=== PATIENT | female | born 1970 | race African-American/Black ===

== ENCOUNTER 2016-07-25 09:04 | Emergency (ER) | payer BC, OTHER ==
[2016-07-25 09:18] VITALS: TEMP 98; BMI 29.3
[2016-07-25 09:26] VITALS: BP 149/99; PULSE 116
[2016-07-25] MEDS ORDERED: ACETAMINOPHEN 500 MG TABLET (FP) PO ONE (10:43)
--- NOTE | 2016-07-25 10:45 | PDOC ---
History of Present Illness - General Chief Complaint: Injury Stated Complaint: FALL, RT HAND INJURY Time Seen by Provider: 07/25/16 09:44 History Source: Patient Exam Limitations: No Limitations - History of Present Illness Initial Comments: 07/25/16 17:27 Chief complaint: Fell onto her right hand pain right pinky History of present illness: Patient is a 46-year-old female with H/O anemia and asthma here today complaining of right pinky pain after falling and hitting her right hand prior to arrival here today. Patient denies hitting her head. Patient reports that she can move her finger well with slight pain to proximal aspect. Patient initially did not have any swelling of her finger or hand however as time went on swelling was noted over her fifth metacarpal area. Patient denies any numbness of hand. Patient denies any other injuries. 07/25/16 17:29 07/25/16 17:33 Occurred: reports: just prior to arrival Severity: reports: mild Pain Location: reports: upper extremity (RT. HAND 5TH PROXIMAL FINGER, DISTAL 5TH MCP JT ) Method of Injury: Yes: fall Modifying Factors: improves with: None Loss of Consciousness: no loss of consciousness Associated Symptoms (Fall): denies symptoms Past History - Past Medical History Allergies/Adverse Reactions: Allergies Allergy/AdvReac Type Severity Reaction Status Date / Time shellfish derived Allergy Severe SEVERE Verified 07/25/16 09:14 NAUSEA latex Allergy Intermediate RASH,WELTS Verified 07/25/16 09:14 Home Medications: Ambulatory Orders Amphet Asp/Amphet/D-Amphet [Adderall 10 mg Tablet] 10 mg PO DAILY 03/14/13 Anemia: Yes Asthma: Yes (SEASONAL) Cancer: No Cardiac Disorders: No CVA: No COPD: No CHF: No Dementia: No Diabetes: No GI Disorders: No Disorders: No HTN: No Hypercholesterolemia: No Liver Disease: No Seizures: No Thyroid Disease: No - Surgical History Abdominal Surgery: Yes (TISHA LEDEZMA 2010,UMBILICAL HERNIA AN ) Appendectomy: No Cardiac Surgery: No Cholecystectomy: Yes (2008) Lung Surgery: No Neurologic Surgery: No Orthopedic Surgery: No - Psycho/Social/Smoking Cessation Hx Anxiety: No Suicidal Ideation: No Smoking History: Never smoked Have you smoked in the past 12 months: No Information on smoking cessation initiated: No Hx Alcohol Use: No Drug/Substance Use Hx: No Substance Use Type: Alcohol Hx Substance Use Treatment: No Review of Systems - Review of Systems Able to Perform ROS?: Yes Constitutional: No: Symptoms Reported HEENTM: No: Symptoms Reported Respiratory: No: Symptoms reported Cardiac (ROS): No: Symptoms Reported ABD/GI: No: Symptoms Reported : No: Symptoms Reported Musculoskeletal: Yes: Joint Pain (rt. proximal 5th finger/distal 5th mcp jt), Joint Swelling (rt. distal mcp jt ) Integumentary: No: Symptoms Reported Neurological: No: Symptoms reported *Physical Exam - Vital Signs Last Vital Signs Temp Pulse Resp BP Pulse Ox 98.0 F 116 H 18 149/99 98 07/25/16 09:14 07/25/16 09:25 07/25/16 09:25 07/25/16 09:25 07/25/16 09:25 - Physical Exam General Appearance: Yes: Appropriately Dressed Neck: negative: Tender, Rigidity, Tender lateral, Tender midline Comments:: 07/25/16 17:30 radial pule 4 + right Extremity: positive: Normal Capillary Refill, Normal Range of Motion, Tender ( rt. 5th distal mcp jt), Swelling (rt. 5th mcp jt ). negative: Normal Inspection Integumentary: positive: Swelling (rt. 5th distal mcp jt ) Neurologic: positive: Alert, Normal Response, Respond to painful stimul (right hand all digits, rt. 5th finger at pip, dip and mcp jt full range of motion ), Responsive. negative: Numbness, Sensory Deficit Procedures - Consent Consent obtained: From Patient - Splinting Splint Location: Right: Hand Pre-Proc Neuro Vasc Exam: normal Hand-Made Type: orthoglass Splint Type: Yes: Short Arm (right hand boxer splint appied to rt. ) Post-Proc Neuro Vasc Exam: normal Rafael Bandage: 3" Sling: No Complications: No ED Treatment Course - RADIOLOGY Radiology Studies Ordered: Category Date Time Status FINGER(S) RIGHT [RAD] Stat Radiology 07/25/16 09:58 Completed Medical Decision Making - Medical Decision Making 07/25/16 17:33 07/25/16 17:33 Patient is a 46-year-old female with H/O anemia and asthma here today complaining of right pinky pain after falling and hitting her right hand prior to arrival here today. Patient denies hitting her head. Patient reports that she can move her finger well with slight pain to proximal aspect. Patient initially did not have any swelling of her finger or hand however as time went on swelling was noted over her fifth metacarpal area. Patient denies any numbness of hand. Patient denies any other injuries. Rule out fracture of right fifth finger and metacarpal Plan: X-ray right hand fracture of distal fifth metacarpal joint slightly displaced Ortho-Glass splint applied to right hand boxer fracture Referral to ortho immunization 1000 mg by mouth now 07/25/16 17:34 *DC/Admit/Observation/Transfer Diagnosis at time of Disposition: Fx metacarpal shaft-closed Qualifiers: Encounter type: initial encounter Metacarpal bone: fifth Fracture alignment: displaced Laterality: right Qualified Code(s): S62.326A - Displaced fracture of shaft of fifth metacarpal bone, right hand, initial encounter for closed fracture - Discharge Dispostion Disposition: HOME Condition at time of disposition: Stable - Referrals Referrals: George Salamanca MD [Staff Physician] - Magdy Leslie MD [Staff Physician] - - Patient Instructions Additional Instructions: Apply ice to right hand over fifth metacarpal joint as I show to every hour or 2 for 15 minutes each time and keep Orthoglass splint on until seen by orthopedist Take acetaminophen as needed as directed by dietetics teacher for pain Follow-up with orthopedist within the next 2 days for further evaluation Return to emergency room if any numbness of your right hand or fingers or forearm Patient voiced understanding of discharge instructions and all questions were answered - Post Discharge Activity Work/School Note: Back to Work
[2016-07-25] MEDS ORDERED: ACETAMINOPHEN 500 MG TABLET (FP) ONE (10:53)
== END 2016-07-25 11:11 | disposition home or self-care (01) ==
LOC: JERFT 09:04
DX: S62.326A Displaced fracture of shaft of fifth metacarpal bone, right hand, initial encounter for closed fracture (principal); W01.0XXA Fall on same level from slipping, tripping and stumbling without subsequent striking against object, initial encounter; Y93.89 Activity, other specified; Y92.89 Other specified places as the place of occurrence of the external cause
CPT/HCPCS: 73140-TC-RT; 99281-25

== ENCOUNTER 2018-01-10 08:36 | Emergency (ER) | payer BC ==
[2018-01-10 08:52] VITALS: BP 137/79; PULSE 96; TEMP 98.1; BMI 28.8
--- NOTE | 2018-01-10 09:28 | PDOC ---
History of Present Illness - General Chief Complaint: Pain Stated Complaint: ABSCESS BOIL Time Seen by Provider: 01/10/18 08:59 History Source: Patient Exam Limitations: No Limitations - History of Present Illness Initial Comments: 01/10/18 09:20 left elbow swelling for 3 days no fever, warm, and red. Pt had small area of cut to the elbow prior. no fever no chills, no PMHX. Pt currently taking Flagyl for BV. 01/10/18 11:52 01/10/18 11:54 Severity: reports: mild Pain Location: reports: upper extremity (left elbow) Past History - Past Medical History Allergies/Adverse Reactions: Allergies Allergy/AdvReac Type Severity Reaction Status Date / Time shellfish derived Allergy Severe SEVERE Verified 01/10/18 08:47 NAUSEA latex Allergy Intermediate RASH,WELTS Verified 01/10/18 08:47 Home Medications: Ambulatory Orders Sulfamethoxazole/Trimethoprim [Bactrim Ds -] 1 tab PO BID #14 tablet 01/10/18 metroNIDAZOLE [Flagyl -] 500 mg PO BID 01/10/18 Anemia: Yes Asthma: Yes (SEASONAL) Cancer: No Cardiac Disorders: No CVA: No COPD: No CHF: No Dementia: No Diabetes: No GI Disorders: No Disorders: No HTN: No Hypercholesterolemia: No Liver Disease: No Seizures: No Thyroid Disease: No - Surgical History Abdominal Surgery: Yes (TISHA 2010,UMBILICAL HERNIA AN ) Appendectomy: No Cardiac Surgery: No Cholecystectomy: Yes (2008) Lung Surgery: No Neurologic Surgery: No Orthopedic Surgery: No - Suicide/Smoking/Psychosocial Hx Smoking History: Never smoked Have you smoked in the past 12 months: No Information on smoking cessation initiated: No Hx Alcohol Use: No Drug/Substance Use Hx: No Substance Use Type: None Hx Substance Use Treatment: No *Physical Exam - Vital Signs Last Vital Signs Temp Pulse Resp BP Pulse Ox 98.1 F 96 H 18 137/79 99 01/10/18 08:47 01/10/18 08:47 01/10/18 08:47 01/10/18 08:47 01/10/18 08:47 - Physical Exam General Appearance: Yes: Nourished, Appropriately Dressed HEENT: positive: EOMI, IGOR Extremity: positive: Normal Capillary Refill, Tender, Swelling (left elbow with redness, fluctuance 2cm area, FROM no joint pain or limitations, no streaking redness up the arm ) Neurologic: positive: Fully Oriented, Alert, Normal Mood/Affect, Normal Response , Motor Strength 5/5 Procedures - Incision and Drainage I&D Site: Left: Other (elbow) Betadine cleansed: Yes Anesthesia: 1% Lidocaine Volume(ml): 3 Blade Size: 11 Attempts: 1 Complications: none Dressing: Yes Progress: 01/10/18 09:22 blood no puss drainage bacitracin and sterile dressing placed 01/10/18 11:53 ED Treatment Course - RADIOLOGY Radiology Studies Ordered: Category Date Time Status ELBOW-LEFT [RAD] Stat Radiology 01/10/18 09:18 Ordered Medical Decision Making - Medical Decision Making 01/10/18 09:21 cc: left elbow swelling, red, warm no streaking no fever no chills no DM pt states there was a small area of a cut that she noticed before the redness will get xray attempt to drain possible pus drainage. 01/10/18 10:14 xray is negative dc home with bactrim strict follow up with ortho pt aware this can progress, so pt must be resting the elbow apply warm compresses and return immediately if worse pt understands and agrees with the plan 01/10/18 11:56 *DC/Admit/Observation/Transfer Diagnosis at time of Disposition: Cellulitis Qualifiers: Site of cellulitis: extremity Site of cellulitis of extremity: upper extremity Laterality: left Qualified Code(s): L03.114 - Cellulitis of left upper limb - Discharge Dispostion Disposition: HOME Condition at time of disposition: Good - Prescriptions Prescriptions: Sulfamethoxazole/Trimethoprim [Bactrim Ds -] 1 tab PO BID #14 tablet - Referrals Referrals: Jac Eli MD [Staff Physician] - - Patient Instructions Printed Discharge Instructions: DI for Cellulitis -- Adult Additional Instructions: please return if any worse, any fever, any spreading of the infection please apply warm compresses every 2hrs for 15 minutes take motrin or tylenol for pain take the bactrim for 7 days follow with the orthopedist Dr. Eli for follow up - Post Discharge Activity Forms/Work/School Notes: Back to Work
== END 2018-01-10 10:36 | disposition home or self-care (01) ==
LOC: JERFT 08:36
PROC: 0J9H0ZZ Drainage of Left Lower Arm Subcutaneous Tissue and Fascia, Open Approach (ICD-10-PCS; principal; 2018-01-10)
DX: L03.114 Cellulitis of left upper limb (principal)
CPT/HCPCS: 73070-TC-LT-FY; 99281-25